=== PATIENT | female | born 1965 | race Hispanic/Latino ===

== ENCOUNTER 2023-10-08 03:08 | Inpatient (IN) | payer SELFPAY ==
[~2023-10-08] VITALS: Ht 172.7 cm; Wt 76.0 kg
[2023-10-08] MEDS: ondanSETRON 4MG INJ IVP ONE (03:49)
[2023-10-08] MEDS: LACTATED RINGERS 1000ML 1,000 ML IV ONE (03:49)
[2023-10-08] MEDS: morPHINE 4 MG SYG IVP ONE ×2 (03:50→06:28)
[2023-10-08 04:03] LABS: BASOPHILS # (AUTO) 0.05 K/uL (0.00-0.20); BASOPHILS % (AUTO) 0.5 % (0.0-5.0); EOSINOPHILS # (AUTO) 0.12 K/uL (0.00-0.70); EOSINOPHILS % (AUTO) 1.2 % (0.0-8.0); HEMATOCRIT 38.6 % (36-48); IMMATURE GRANULOCYTE ABSOLUTE 0.11 K/uL (0-1); LYMPHOCYTES # (AUTO) 0.4 K/uL (1.0-4.8); LYMPHOCYTES % (AUTO) 3.9 % (21.0-51.0); MEAN CORPUSCULAR HEMOGLOBIN 34.1 pg (27.0-33.0); MEAN CORPUSCULAR HGB CONC 35.5 g/dL (32.0-36.0); MONOCYTES # (AUTO) 0.8 K/uL (0.1-1.0); MONOCYTES % (AUTO) 8.2 % (3.0-13.0); NEUTROPHILS # (AUTO) 8.7 K/uL (1.8-7.7); NEUTROPHILS % (AUTO) 85.1 % (40.0-77.0); PLATELET COUNT (AUTO) 140 K/uL (130-400); RED BLOOD CELL COUNT(AUTO) 4.02 MIL/uL (4.00-5.50); RED CELL DISTRIBUTION WIDTH 12.6 % (11.0-15.5); WHITE BLOOD COUNT (AUTO) 10.2 K/uL (4.8-10.8)
[2023-10-08 04:07] LABS: ALBUMIN 2.8 g/dL (3.5-5.0); BILIRUBIN,TOTAL 1.8 mg/dL (0.2-1.0); CREATININE 0.9 mg/dL (0.5-1.0); POTASSIUM 4.5 mmol/L (3.5-5.1)
[2023-10-08 04:25] LABS: ABG OXYGEN SATURATION 61.6 % (94.0-98.0); BASE EXCESS,VENOUS BLOOD GAS -1.4 (-2.0-3.0); HCO3,VENOUS BLOOD GAS 21.4 (22.0-29.0); PCO2,VENOUS BLOOD GAS 31 (38-54); PH,VENOUS BLOOD GAS 7.459 (7.320-7.430); VENT MODE, BG RA,21 (ROOM AIR)
[2023-10-08] MEDS: 0.9%NACL 1000ML 1,000 ML IV ONE (04:41)
[2023-10-08] MEDS: GABAPENTIN 300 MG CAPSULE PO SCH (04:41)
[2023-10-08] MEDS: INSULIN humuLIN R 100 UNIT/ML 3ML IV ONE (04:42)
[2023-10-08] MEDS: ceFEPime HCL 1 GM VIAL IVPB SCH (06:28)
[2023-10-08 07:11] LABS: APPEARANCE,URINE CLEAR (CLEAR); BACTERIA,URINE RARE /HPF (None Seen); BILIRUBIN,URINE NEGATIVE (NEGATIVE); COLOR,URINE YELLOW (YELLOW); GLUCOSE, URINE (UA) >=1000 mg/dL (NEGATIVE); KETONES,URINE 40 mg/dL (NEGATIVE); LEUKOCYTE ESTERASE ,URINE NEGATIVE Leu/uL (NEGATIVE); NITRATE,URINE NEGATIVE (NEGATIVE); OCCULT BLOOD,URINE MODERATE (NEGATIVE); PROTEIN,URINE 50 mg/dL (NEGATIVE); WBC,URINE 0-1 /HPF (0-1)
[2023-10-08] MEDS: acetaMINOPHEN 500 MG TABLET PO ONE (08:09)
[2023-10-08] MEDS: acetaMINOPHEN 500 MG TABLET ONE (08:09)
[2023-10-08 09:09] VITALS: TEMP 98.9
[2023-10-08] MEDS: 0.9% NACL 500ML IV.SOLN 500 ML IV ONE (09:59)
[2023-10-08] MEDS: CEFTRIAXONE 2GM VIAL IVPB SCH (10:22)
[2023-10-08 10:50] LABS: RAPID GROUP A STREP negative (NEGATIVE)
[2023-10-08 10:58] LABS: INFLUENZA TYPE A Negative For Type A (NEGATIVE); INFLUENZA TYPE B Negative For Type B (NEGATIVE)
[2023-10-08 10:59] LABS: COVID19 (SARS ANTIGEN RAPID) PRESUMPTIVE NEGATIVE (NEGATIVE)
[2023-10-08] MEDS: AZITHROMYCIN 500MG+NS 250ML 250 ML IVPB SCH (11:24)
[2023-10-08 13:45] VITALS: BP 99/54; PULSE 56; RESP 17; TEMP 98; O2SAT 95
[2023-10-08] MEDS ORDERED: PHARMACY COMMUNICATION MISC PRN (14:00)
[2023-10-08] MEDS ORDERED: LORazepam 2 MG/ML 1 ML VIAL IVP PRN (14:00)
[2023-10-08] MEDS ORDERED: ondanSETRON 4MG INJ IVP PRN (14:00)
[2023-10-08 14:03] LABS: RETICULOCYTE % (AUTO) 1.58 % (0.42-2.23)
[2023-10-08 14:19] LABS: ALCOHOL, BLOOD < 3 mg/dL (0-10)
[2023-10-08 14:20] LABS: CREATINE KINASE, TOTAL 704 U/L (21-232)
[2023-10-08 14:26] LABS: HEMOGLOBIN A1C 10.1 % (4.0-6.0)
[2023-10-08 14:33] LABS: % IRON SATURATION 8.1 % (22-44)
[2023-10-08] MEDS: metRONIDazole 500MG/100ML BAG 100 ML IVPB SCH (14:57)
[2023-10-08 16:37] VITALS: BP 100/59; PULSE 96; RESP 18; TEMP 99.2
[2023-10-08] MEDS: morPHINE 2 MG SYG IVP PRN (19:53)
[2023-10-08 19:55] VITALS: O2SAT 94
[2023-10-08 20:00] VITALS: BP 109/59; PULSE 107; RESP 19; TEMP 99.3
[2023-10-08] MEDS: 0.9%NACL 1000ML 1,000 ML IV SCH (21:39)
[2023-10-08] MEDS ORDERED: INSU100C14 SQ (21:45)
[2023-10-08] MEDS ORDERED: LISI1TAB51 PO (21:45)
[2023-10-08 23:15] VITALS: BP 126/67; PULSE 107; RESP 18; TEMP 98.7
[2023-10-09] VITALS (7 sets, daily range): BP systolic 119–132; BP diastolic 60–75; PULSE 96–106; RESP 18; TEMP 98.4–99.6; O2SAT 94–99
[2023-10-09 05:12] LABS: BASOPHILS # (AUTO) 0.04 K/uL (0.00-0.20); BASOPHILS % (AUTO) 0.4 % (0.0-5.0); HEMATOCRIT 33.7 % (36-48); LYMPHOCYTES # (AUTO) 0.6 K/uL (1.0-4.8); LYMPHOCYTES % (AUTO) 6.4 % (21.0-51.0); MEAN CORPUSCULAR HEMOGLOBIN 33.5 pg (27.0-33.0); MEAN CORPUSCULAR HGB CONC 34.1 g/dL (32.0-36.0); MEAN CORPUSCULAR VOLUME 98.3 fL (79-99); MONOCYTES # (AUTO) 0.9 K/uL (0.1-1.0); MONOCYTES % (AUTO) 9.6 % (3.0-13.0); NEUTROPHILS # (AUTO) 7.8 K/uL (1.8-7.7); NEUTROPHILS % (AUTO) 82.5 % (40.0-77.0); PLATELET COUNT (AUTO) 107 K/uL (130-400); RED BLOOD CELL COUNT(AUTO) 3.43 MIL/uL (4.00-5.50); RED CELL DISTRIBUTION WIDTH 12.7 % (11.0-15.5); WHITE BLOOD COUNT (AUTO) 9.5 K/uL (4.8-10.8)
[2023-10-09 05:40] LABS: ALBUMIN 1.9 g/dL (3.5-5.0); BILIRUBIN,DIRECT 0.9 mg/dL (0.0-0.3); BILIRUBIN,TOTAL 1.4 mg/dL (0.2-1.0); CREATININE 0.6 mg/dL (0.5-1.0); POTASSIUM 3.6 mmol/L (3.5-5.1); TOTAL PROTEIN, SERUM 6.1 g/dL (6.0-8.3)
[2023-10-09] MEDS ORDERED: GLUCAGON 1MG KIT 1 MG ML IM PRN (06:00)
[2023-10-09] MEDS ORDERED: DEXTROSE 50%-WATER 50 ML DISP.SYRIN IV PRN (06:00)
[2023-10-09] MEDS: 0.9%NACL 1000ML 1,000 ML IV SCH (06:03)
[2023-10-09] MEDS: INSULIN humuLIN R 100 UNIT/ML 3ML SQ SCH (06:06)
[2023-10-09] MEDS: PANTOPrazole 40 MG TAB DR PO SCH (09:00)
[2023-10-09] MEDS ORDERED: PoTASSium chl 10% ELIXIR 20MEQ 20 MEQ/15 ML UDCUP PO PRN (09:30)
[2023-10-09] MEDS ORDERED: MAGNESIUM 2GM PREMIX 50ML 50 ML IV PRN (09:30)
[2023-10-09] MEDS ORDERED: PoTASSium chloRIDE 20MEQ/100ML 100 ML IV PRN (09:30)
[2023-10-09] MEDS ORDERED: ketOROlac 15MG/ML VIAL (15MG/ML) IV ONE (10:00)
[2023-10-09] MEDS ORDERED: PANTOPrazole 40 MG/VIAL IVP ONE (10:00)
[2023-10-09] MEDS: ENOXAPARIN SODIUM 30 MG/0.3 ML SQ SCH (12:27)
[2023-10-09 15:55] LABS: CHOLESTEROL 137 mg/dL (<200); HDL CHOLESTEROL 15 mg/dL (35-85); LDL DIRECT 67 mg/dL (0-99); TRIGLYCERIDES 114 mg/dL (30-200)
[2023-10-09 23:23] LABS: AMPHET/METH SCREEN,URINE NEGATIVE (NEGATIVE); BARBITURATE SCREEN, URINE NEGATIVE (NEGATIVE); BENZODIAZEPINES SCREEN,URINE NEGATIVE (NEGATIVE); CANNABINOID SCREEN,URINE NEGATIVE (NEGATIVE); COCAINE SCREEN,URINE NEGATIVE (NEGATIVE); OPIATE SCREEN,URINE NEGATIVE (NEGATIVE); PHENCYCLIDINE SCREEN,URINE NEGATIVE (NEGATIVE)
[2023-10-10] MEDS: traMADol HCL 50 MG TABLET PO ONE (04:16)
[2023-10-10 04:21] VITALS: BP 129/69; PULSE 101; RESP 18; TEMP 98.5
[2023-10-10 05:24] LABS: HEMATOCRIT 33.6 % (36-48); MEAN CORPUSCULAR HEMOGLOBIN 33.2 pg (27.0-33.0); MEAN CORPUSCULAR HGB CONC 34.5 g/dL (32.0-36.0); MEAN CORPUSCULAR VOLUME 96.3 fL (79-99); RED BLOOD CELL COUNT(AUTO) 3.49 MIL/uL (4.00-5.50); RED CELL DISTRIBUTION WIDTH 12.8 % (11.0-15.5); WHITE BLOOD COUNT (AUTO) 9.9 K/uL (4.8-10.8)
[2023-10-10 06:07] LABS: ALBUMIN 1.9 g/dL (3.5-5.0); BILIRUBIN,TOTAL 1.6 mg/dL (0.2-1.0); CREATININE 0.7 mg/dL (0.5-1.0); TOTAL PROTEIN, SERUM 6.2 g/dL (6.0-8.3)
[2023-10-10 06:09] LABS: POTASSIUM 2.7 mmol/L (3.5-5.1)
[2023-10-10] MEDS: PoTASSium chloRIDE 20MEQ ER 20 MEQ ERTAB PO PRN (06:15)
[2023-10-10 07:53] VITALS: BP 151/85; PULSE 105; RESP 18; TEMP 98.3
[2023-10-10] MEDS ORDERED: VANCOMYCIN PROTOCOL PER PHARMACY IV SCH (11:00)
[2023-10-10 11:39] VITALS: BP 136/70; PULSE 96; RESP 18; TEMP 99.6
[2023-10-10] MEDS: VANCOMYCIN 2GM/500 ML BAG 500 ML IV ONE (12:34)
[2023-10-10 16:15] VITALS: BP 123/73; PULSE 74; RESP 17; TEMP 98.2
[2023-10-10] MEDS ORDERED: GADOTERATE MEGLUMINE 10 MMOL/20 ML VIAL IV ONE (17:14)
[2023-10-10] MEDS ORDERED: COMPOUND IV REFRIGERATED 1 EACH IVSOLN MISC PRN (19:30)
[2023-10-10 20:00] VITALS: BP 138/65; PULSE 98; RESP 20; TEMP 98
[2023-10-10] MEDS: M.V.I. IV [ADULT] 10 ML, FOLic ACID 5 MG/ML VIAL 1 MG, THIAMINE HCL 100 MG in 0.9%NACL ... IV SCH (22:50)
[2023-10-10] MEDS: VANCOMYCIN 1.25 GM/250 ML BAG 250 ML IV SCH (22:59)
[2023-10-11] VITALS (8 sets, daily range): BP systolic 121–161; BP diastolic 70–85; PULSE 89–110; RESP 17–20; TEMP 97.4–99.1; O2SAT 92–96
[2023-10-11] MEDS ORDERED: VANCOMYCIN 1.25 GM/250 ML BAG 250 ML IV SCH (03:30)
[2023-10-11 05:24] LABS: HEMATOCRIT 35.4 % (36-48); MEAN CORPUSCULAR HEMOGLOBIN 33.4 pg (27.0-33.0); MEAN CORPUSCULAR HGB CONC 34.5 g/dL (32.0-36.0); RED BLOOD CELL COUNT(AUTO) 3.65 MIL/uL (4.00-5.50); RED CELL DISTRIBUTION WIDTH 13.1 % (11.0-15.5); WHITE BLOOD COUNT (AUTO) 8.9 K/uL (4.8-10.8)
[2023-10-11 05:58] LABS: ALBUMIN 1.8 g/dL (3.5-5.0); BILIRUBIN,TOTAL 1.9 mg/dL (0.2-1.0); CREATININE 0.6 mg/dL (0.5-1.0); POTASSIUM 3.6 mmol/L (3.5-5.1); TOTAL PROTEIN, SERUM 6.2 g/dL (6.0-8.3)
[2023-10-11] MEDS ORDERED: M.V.I. IV [ADULT] 10 ML, FOLic ACID 5 MG/ML VIAL 1 MG, THIAMINE HCL 100 MG in 0.9%NACL ... IV SCH (11:00)
[2023-10-11] MEDS ORDERED: PHARMACY COMMUNICATION MISC SCH (13:00)
[2023-10-11] MEDS ORDERED: THIAMINE HCL IV SCH (14:30)
[2023-10-11] MEDS ORDERED: [UNRECOGNIZED DRUG - OTHER] IV SCH (14:30)
[2023-10-11] MEDS ORDERED: FOLIC ACID IV SCH (14:30)
[2023-10-11] MEDS ORDERED: M V I IV SCH (14:30)
[2023-10-11] MEDS: 0.9%NACL 1000ML IV SCH (15:44)
[2023-10-11] MEDS: M V I IV SCH (21:07)
[2023-10-11] MEDS: [UNRECOGNIZED DRUG - OTHER] IV SCH (21:07)
[2023-10-11] MEDS: FOLIC ACID IV SCH (21:07)
[2023-10-11] MEDS: THIAMINE HCL IV SCH (21:07)
[2023-10-12] VITALS (7 sets, daily range): BP systolic 117–137; BP diastolic 71–82; PULSE 89–101; RESP 18–20; TEMP 97.2–99.1; O2SAT 96–97
[2023-10-12] MEDS: morPHINE 2 MG SYG IVP PRN (01:22)
[2023-10-12] MEDS: acetaMINOPHEN 325 MG TAB PO PRN (02:52)
[2023-10-12] MEDS: VANCOMYCIN 1.25 GM/250 ML BAG 250 ML IV SCH (03:11)
[2023-10-12 05:19] LABS: HEMATOCRIT 31.6 % (36-48); MEAN CORPUSCULAR HEMOGLOBIN 32.5 pg (27.0-33.0); MEAN CORPUSCULAR HGB CONC 34.5 g/dL (32.0-36.0); MEAN CORPUSCULAR VOLUME 94.3 fL (79-99); RED BLOOD CELL COUNT(AUTO) 3.35 MIL/uL (4.00-5.50); RED CELL DISTRIBUTION WIDTH 13.2 % (11.0-15.5); WHITE BLOOD COUNT (AUTO) 9.6 K/uL (4.8-10.8)
[2023-10-12 05:30] LABS: ALBUMIN 1.7 g/dL (3.5-5.0); BILIRUBIN,TOTAL 2.1 mg/dL (0.2-1.0); CREATININE 0.5 mg/dL (0.5-1.0); POTASSIUM 3.1 mmol/L (3.5-5.1); TOTAL PROTEIN, SERUM 5.8 g/dL (6.0-8.3)
[2023-10-13] VITALS (8 sets, daily range): BP systolic 116–144; BP diastolic 60–79; PULSE 93–103; RESP 16–20; TEMP 97.8–98.4; O2SAT 94–96
[2023-10-13] MEDS: acetaMINOPHEN 325 MG TAB PO PRN (01:51)
[2023-10-13] MEDS: VANCOMYCIN 1.25 GM/250 ML BAG 250 ML IV SCH (03:28)
[2023-10-13 09:06] LABS: HEMATOCRIT 34.2 % (36-48); MEAN CORPUSCULAR HEMOGLOBIN 33.1 pg (27.0-33.0); MEAN CORPUSCULAR HGB CONC 34.8 g/dL (32.0-36.0); MEAN CORPUSCULAR VOLUME 95.3 fL (79-99); RED BLOOD CELL COUNT(AUTO) 3.59 MIL/uL (4.00-5.50); RED CELL DISTRIBUTION WIDTH 13.7 % (11.0-15.5); WHITE BLOOD COUNT (AUTO) 10.7 K/uL (4.8-10.8)
[2023-10-13 09:17] LABS: ALBUMIN 1.8 g/dL (3.5-5.0); BILIRUBIN,TOTAL 2.1 mg/dL (0.2-1.0); CREATININE 0.5 mg/dL (0.5-1.0); POTASSIUM 3.5 mmol/L (3.5-5.1); TOTAL PROTEIN, SERUM 6.4 g/dL (6.0-8.3)
[2023-10-14] VITALS (23 sets, daily range): BP systolic 100–139; BP diastolic 40–82; PULSE 70–95; RESP 15–19; TEMP 97.5–98.9; O2SAT 96
[2023-10-14] MEDS ORDERED: ROPivacaine 0.5% 5MG/ML 30ML ONE (09:45)
[2023-10-14] MEDS ORDERED: proPOFol 10 MG/ML 20ML VIAL IV ONE ×2 (09:50→09:52)
[2023-10-14] MEDS ORDERED: ketaMINE 50MG/ML SYRINGE 50 MG/ML DISP.SYRIN ONE (10:20)
[2023-10-14] MEDS ORDERED: FENTanyl CITRate PF 50 MCG/1 ML 2ML VIAL ONE (10:22)
[2023-10-14] MEDS: BUPIvacaine/PF 0.25% 30ML VIAL IJ ONE (10:23)
[2023-10-14] MEDS ORDERED: PoTASSium chl 10% ELIXIR 20MEQ 20 MEQ/15 ML UDCUP PO PRN (11:30)
[2023-10-14] MEDS ORDERED: CALCIUM CARB 500MG PO PRN (11:30)
[2023-10-14] MEDS ORDERED: PoTASSium chloRIDE 20MEQ/100ML 100 ML IV PRN (11:30)
[2023-10-14] MEDS ORDERED: PoTASSium chloRIDE 20MEQ ER 20 MEQ ERTAB PO PRN (11:30)
[2023-10-14] MEDS: PSYLLIUM SEED 1 EACH PACKET PO SCH (11:44)
[2023-10-14] MEDS: LACTULOSE 20 GM/30 ML UDCUP PO ONE (11:44)
[2023-10-14] MEDS: 0.9%NACL 1000ML 1,000 ML IV SCH (11:47)
[2023-10-14] MEDS: ketOROlac 15MG/ML VIAL (15MG/ML) IV PRN (15:32)
[2023-10-14] MEDS: ceFAZolin SODIUM 2 GM VIAL IVPB SCH (15:41)
[2023-10-15] VITALS (8 sets, daily range): BP systolic 105–144; BP diastolic 53–85; PULSE 67–92; RESP 16–18; TEMP 97.5–98.3; O2SAT 94–98
[2023-10-15 05:19] LABS: HEMATOCRIT 33.5 % (36-48); MEAN CORPUSCULAR HEMOGLOBIN 32.5 pg (27.0-33.0); MEAN CORPUSCULAR HGB CONC 33.7 g/dL (32.0-36.0); MEAN CORPUSCULAR VOLUME 96.3 fL (79-99); RED BLOOD CELL COUNT(AUTO) 3.48 MIL/uL (4.00-5.50); RED CELL DISTRIBUTION WIDTH 14.1 % (11.0-15.5); WHITE BLOOD COUNT (AUTO) 8.4 K/uL (4.8-10.8)
[2023-10-15 05:31] LABS: INR 1.35 (0.85-1.15); PROTHROMBIN TIME 14.3 SEC (9.6-11.6)
[2023-10-15 05:37] LABS: CREATININE 0.6 mg/dL (0.5-1.0)
[2023-10-15] MEDS: FERROUS FUMARATE 324 MG TABLET PO SCH (08:38)
[2023-10-15] MEDS: polyETHYLene GLYCol 3350 17 GM POWD.PACK PO SCH (08:40)
[2023-10-15] MEDS: chlordiazePOXIDE HCL 25 MG CAP PO PRN (08:51)
[2023-10-15] MEDS ORDERED: chlordiazePOXIDE HCL 25 MG CAP PO PRN (19:30)
[2023-10-15] MEDS ORDERED: PHARMACY COMMUNICATION MISC PRN (19:30)
[2023-10-15] MEDS: MELATONIN 5 MG TABLET PO SCH (22:39)
[2023-10-16] VITALS (15 sets, daily range): BP systolic 104–146; BP diastolic 53–78; PULSE 80–92; RESP 17–18; TEMP 97.3–98.7; O2SAT 96
[2023-10-16 05:53] LABS: BASOPHILS # (AUTO) 0.02 K/uL (0.00-0.20); BASOPHILS % (AUTO) 0.3 % (0.0-5.0); EOSINOPHILS # (AUTO) 0.09 K/uL (0.00-0.70); EOSINOPHILS % (AUTO) 1.2 % (0.0-8.0); HEMATOCRIT 30.7 % (36-48); IMMATURE GRANULOCYTE ABSOLUTE 0.05 K/uL (0-1); LYMPHOCYTES % (AUTO) 13.7 % (21.0-51.0); MEAN CORPUSCULAR HEMOGLOBIN 33.1 pg (27.0-33.0); MEAN CORPUSCULAR HGB CONC 34.2 g/dL (32.0-36.0); MEAN CORPUSCULAR VOLUME 96.8 fL (79-99); MONOCYTES # (AUTO) 0.4 K/uL (0.1-1.0); MONOCYTES % (AUTO) 4.9 % (3.0-13.0); NEUTROPHILS % (AUTO) 79.2 % (40.0-77.0); PLATELET COUNT (AUTO) 123 K/uL (130-400); RED BLOOD CELL COUNT(AUTO) 3.17 MIL/uL (4.00-5.50); RED CELL DISTRIBUTION WIDTH 14.6 % (11.0-15.5); WHITE BLOOD COUNT (AUTO) 7.6 K/uL (4.8-10.8)
[2023-10-16 06:06] LABS: INR 1.35 (0.85-1.15); PROTHROMBIN TIME 14.3 SEC (9.6-11.6)
[2023-10-16 06:25] LABS: ALBUMIN 1.7 g/dL (3.5-5.0); BILIRUBIN,DIRECT 0.8 mg/dL (0.0-0.3); BILIRUBIN,TOTAL 1.6 mg/dL (0.2-1.0); CREATININE 0.6 mg/dL (0.5-1.0); POTASSIUM 3.4 mmol/L (3.5-5.1); TOTAL PROTEIN, SERUM 6.1 g/dL (6.0-8.3)
[2023-10-16] MEDS: PoTASSium chloRIDE 20MEQ ER 20 MEQ ERTAB PO ONE (09:30)
[2023-10-16 11:04] LABS: HEPATITIS A IGM ANTIBODY Non-Reactive (Nonreactive); HEPATITIS B CORE IGM ANTIBODY Non-Reactive (Negative); HEPATITIS B SURFACE ANTIGEN Non-Reactive (Nonreactive); HEPATITIS C ANTIBODY Non-Reactive (Nonreactive)
[2023-10-16] MEDS ORDERED: BisaCODYL 5 MG TABLET.DR PO PRN (11:30)
[2023-10-16] MEDS: ALBUMIN (HUMAN) 25% 200 ML IV SCH (13:17)
[2023-10-16] MEDS: morPHINE 2 MG SYG IVP ONE (15:02)
[2023-10-16 15:06] LABS: BODY FLUID RBC 309 /cu. mm.; BODY FLUID WBC 77 /cu. mm.
[2023-10-16 19:36] LABS: APPEARANCE BODY FLUID CLEAR (CLEAR); COLOR,BODY FLUID YELLOW (LT YELLOW); SPECIMENTYPE,BODY FLUID ASCITES; TOTAL VOLUME,BODY FLUID 4600 mL
[2023-10-16 19:38] LABS: BF LYMPHOCYTE 11 %; BF MACROPHAGE 73; BF MONOCYTE 1 %; BF OTHER CELLS 2; BF TOTAL CELLS COUNTED 100
[2023-10-17] VITALS: BP 121/64; PULSE 91; RESP 18; TEMP 98.4
[2023-10-17 04:00] VITALS: BP 132/75; PULSE 86; RESP 18; TEMP 98.3
[2023-10-17 05:06] LABS: BASOPHILS # (AUTO) 0.01 K/uL (0.00-0.20); BASOPHILS % (AUTO) 0.2 % (0.0-5.0); EOSINOPHILS # (AUTO) 0.08 K/uL (0.00-0.70); EOSINOPHILS % (AUTO) 1.3 % (0.0-8.0); HEMATOCRIT 28.4 % (36-48); IMMATURE GRANULOCYTE ABSOLUTE 0.04 K/uL (0-1); LYMPHOCYTES % (AUTO) 15.8 % (21.0-51.0); MEAN CORPUSCULAR HEMOGLOBIN 32.7 pg (27.0-33.0); MEAN CORPUSCULAR HGB CONC 34.2 g/dL (32.0-36.0); MEAN CORPUSCULAR VOLUME 95.6 fL (79-99); MONOCYTES # (AUTO) 0.4 K/uL (0.1-1.0); MONOCYTES % (AUTO) 6.5 % (3.0-13.0); NEUTROPHILS # (AUTO) 4.8 K/uL (1.8-7.7); NEUTROPHILS % (AUTO) 75.6 % (40.0-77.0); PLATELET COUNT (AUTO) 108 K/uL (130-400); RED BLOOD CELL COUNT(AUTO) 2.97 MIL/uL (4.00-5.50); RED CELL DISTRIBUTION WIDTH 14.6 % (11.0-15.5); WHITE BLOOD COUNT (AUTO) 6.3 K/uL (4.8-10.8)
[2023-10-17 05:23] LABS: INR 1.48 (0.85-1.15); PROTHROMBIN TIME 15.5 SEC (9.6-11.6)
[2023-10-17 05:37] LABS: ALBUMIN 2.1 g/dL (3.5-5.0); BILIRUBIN,TOTAL 1.7 mg/dL (0.2-1.0); CREATININE 0.6 mg/dL (0.5-1.0); MAGNESIUM 1.4 mg/dL (1.80-2.40); POTASSIUM 3.9 mmol/L (3.5-5.1)
[2023-10-17 08:00] VITALS: O2SAT 95
[2023-10-17 08:02] VITALS: BP 125/66; PULSE 87; RESP 18; TEMP 98.1
[2023-10-17] MEDS ORDERED: MAGNESIUM 2GM PREMIX 50ML 50 ML IV SCH (09:00)
[2023-10-17] MEDS ORDERED: BisaCODYL 10 MG SUPP.RECT RC PRN (11:30)
[2023-10-17 11:45] VITALS: BP 120/72; PULSE 84; RESP 16; TEMP 98.1
[2023-10-17] MEDS ORDERED: PANT40TA PO (12:41)
[2023-10-17] MEDS ORDERED: MELA5TAB66 PO (12:41)
[2023-10-21 12:05] LABS: WEST NILE VIRUS IGG Negative (Negative); WEST NILE VIRUS IGM Negative (Negative)
== END 2023-10-17 15:40 | disposition home or self-care (01) | DRG 853 ==
LOC: EDH 03:08 → EDHIP 03:09 → 3CH 13:45
PROVIDERS: ADMIT Internal Medicine; ATTEND Internal Medicine
PROC: 0JBQ0ZZ Excision of Right Foot Subcutaneous Tissue and Fascia, Open Approach (ICD-10-PCS; principal; 2023-10-14 09:45)
PROC: 02HV33Z Insertion of Infusion Device into Superior Vena Cava, Percutaneous Approach (ICD-10-PCS; 2023-10-16)
PROC: B548ZZA Ultrasonography of Superior Vena Cava, Guidance (ICD-10-PCS; 2023-10-16)
PROC: 0W9G3ZZ Drainage of Peritoneal Cavity, Percutaneous Approach (ICD-10-PCS; 2023-10-16)
DX: A40.8 Other streptococcal sepsis (principal); G93.41 Metabolic encephalopathy; E87.1 Hypo-osmolality and hyponatremia; E87.20 Acidosis, unspecified; L03.115 Cellulitis of right lower limb; K80.00 Calculus of gallbladder with acute cholecystitis without obstruction; N39.0 Urinary tract infection, site not specified; L02.611 Cutaneous abscess of right foot; E87.8 Other disorders of electrolyte and fluid balance, not elsewhere classified; F10.10 Alcohol abuse, uncomplicated; K82.8 Other specified diseases of gallbladder; E11.65 Type 2 diabetes mellitus with hyperglycemia; B95.61 Methicillin susceptible Staphylococcus aureus infection as the cause of diseases classified elsewhere; E78.5 Hyperlipidemia, unspecified; E86.0 Dehydration; E87.6 Hypokalemia; D64.9 Anemia, unspecified; D69.6 Thrombocytopenia, unspecified; L40.9 Psoriasis, unspecified; G47.33 Obstructive sleep apnea (adult) (pediatric); I10 Essential (primary) hypertension; K70.31 Alcoholic cirrhosis of liver with ascites; K76.82 Hepatic encephalopathy; M25.40 Effusion, unspecified joint; E11.40 Type 2 diabetes mellitus with diabetic neuropathy, unspecified; M54.2 Cervicalgia; E11.51 Type 2 diabetes mellitus with diabetic peripheral angiopathy without gangrene; K57.30 Diverticulosis of large intestine without perforation or abscess without bleeding; K59.00 Constipation, unspecified; Z79.4 Long term (current) use of insulin; Z82.49 Family history of ischemic heart disease and other diseases of the circulatory system; Z83.3 Family history of diabetes mellitus
CPT/HCPCS: 36415; 36600; 49083; 70450; 70551; 71045; 72040; 72158; 73630; 73718; 74150; 74176; 78226; 80048; 80053; 80061; 80074; 80076; 80202; 80305; 81001; 82010; 82140; 82306; 82435; 82550; 82607; 82728; 82803; 82947; 82948; 83036; 83605; 83690; 83735; 84132; 84145; 84295; 85025; 85027; 85610; 85651; 86000; 86140; 86788; 86789; 86794; 87040; 87070; 87071; 87076; 87086; 87186; 87205; 87426; 87804; 87880; 89051; 93306; A6266; A9537; C1729; G0378; J0456; J0692; J0696; J1650; J1815; J1885; J2270; J2405; J2704; J2795; J3010; J3411; J3475; J3490; J7030; J7120; P9046; 3370; A4649; A4930; A6223; A9575; J0665; J0690; J3370

== ENCOUNTER 2023-10-20 02:11 | Emergency (ER) | payer SELFPAY ==
[~2023-10-20] VITALS: Ht 172.7 cm; Wt 75.7 kg
[~2023-10-20 02:11] MED LIST: INSU100C14 SQ; LISI1TAB51 PO; MELA5TAB66 PO; PANT40TA PO
[2023-10-20] MEDS: CYCLOBENZAPRINE HCL 10 MG TABLET PO ONE (04:22)
[2023-10-20] MEDS: morPHINE 4 MG SYG IM ONE (04:23)
[2023-10-20] MEDS: morPHINE 2 MG SYG ONE (04:24)
[2023-10-20 06:03] VITALS: BP 116/62; PULSE 80; RESP 16; TEMP 98.3; O2SAT 98
[2023-10-20] MEDS ORDERED: CYCL-309 PO (06:32)
== END 2023-10-20 06:52 | disposition home or self-care (01) ==
LOC: EDH 02:11
DX: M19.90 Unspecified osteoarthritis, unspecified site (principal); M54.2 Cervicalgia; E11.9 Type 2 diabetes mellitus without complications; I10 Essential (primary) hypertension; Z79.899 Other long term (current) drug therapy
CPT/HCPCS: 99283; 96372; J2270